=== PATIENT | female | born 1970 | race Caucasian/White ===

== ENCOUNTER 2016-06-22 16:46 | Emergency (ER) | payer OTHER ==
[2016-06-22 17:15] VITALS: BP 137/65
--- NOTE | 2016-06-22 17:26 | UC ---
Eye Complaint HPI - HPI Summary HPI Summary: complaint of eye redness and small bumps on her left eye that started 4 days ago eyes are not painful but are itchy slight crusty drainage on eyes denies eye pain but feels her eyelid scraping it over it hasn't worn contacts for approx 2 days denies vision changes - History of Current Complaint Chief Complaint: UCEye Stated Complaint: EYE COMPLAINT Time Seen by Provider: 06/22/16 17:19 Hx Obtained From: Patient Hx Last Menstrual Period: 06/09/16 - Allergies/Home Medications Allergies/Adverse Reactions: Allergies Allergy/AdvReac Type Severity Reaction Status Date / Time No Known Allergies Allergy Verified 06/22/16 17:15 PMH/Surg Hx/FS Hx/Imm Hx Previously Healthy: Yes Endocrine History Of: Denies: Diabetes, Thyroid Disease Cardiovascular History Of: Denies: Cardiac Disorders, Hypertension, Pacemaker/ICD, Congestive Heart Failure Respiratory History Of: Reports: Asthma Denies: COPD GI/ History Of: Denies: Ulcer, Renal Disease - Surgical History Surgical History: Yes Surgery Procedure, Year, and Place: TUBIAL LIGATION. MASTECTOMY, BREAST IMPLANTS X 2. left eye repair-lazy eye - Family History Known Family History: Negative: Cardiac Disease, Hypertension, Diabetes - Social History Occupation: Employed Full-time Lives: With Family Alcohol Use: Rare Substance Use Type: None Smoking Status (MU): Never Smoked Tobacco - Immunization History Most Recent Tetanus Shot: 2010 Review of Systems Constitutional: Negative Skin: Negative Eyes: Drainage, Eye Redness ENT: Negative Respiratory: Negative Cardiovascular: Negative Gastrointestinal: Negative Genitourinary: Negative Motor: Negative Neurovascular: Negative Musculoskeletal: Negative Neurological: Negative Psychological: Negative All Other Systems Reviewed And Are Negative: Yes Physical Exam Triage Information Reviewed: Yes Appearance: No Pain Distress, Well-Nourished Vital Signs: Initial Vital Signs Temp 98.3 F 06/22/16 17:06 Pulse 90 06/22/16 17:06 Resp 16 06/22/16 17:06 BP 137/65 06/22/16 17:06 Pulse Ox 100 06/22/16 17:06 Vital Signs Reviewed: Yes Eyes: Positive: Conjunctiva Inflamed, Discharge, Other: - OS- observed under fluriescene- small 2mm ulceration lateral side of cornea ENT: Positive: Pharynx normal, TMs normal. Negative: Nasal congestion Neck: Positive: No Lymphadenopathy Respiratory: Positive: Lungs clear, Normal breath sounds Cardiovascular: Positive: RRR, No Murmur, Pulses Normal Musculoskeletal: Positive: No Edema Neurological: Positive: Alert Psychological Exam: Normal Skin Exam: Normal Eye Complaint Course/Dx - Course Course Of Treatment: exam completed will start antibiotics for corneal ulceration and conjunctivitis. followup with Dr Bradley - Differential Dx/Diagnosis Differential Diagnosis/HQI/PQRI: Conjunctivitis, Corneal Abrasion, Other - herpes zoster Provider Diagnoses: left eye-corneal abrasion. both eyes conjunctivitis Discharge - Discharge Plan Condition: Stable Disposition: HOME Prescriptions: Tobramycin (Ophth) [Tobrex] 0.3 % OP Q4HR #1 nataly Patient Education Materials: Corneal Abrasion (ED), Conjunctivitis (ED) Referrals: Conor Vieira MD [Primary Care Provider] - Unruly Bradley MD [Medical Doctor] - Additional Instructions: please contact Dr Bradley on 06/24/16 for further evaluation and treatment of your corneal abrasion and conjunctivitis start eyedrops as directed CONJUNCTIVITIS What is Conjunctivitis? Conjunctivitis is redness and swelling of the conjunctiva, the thin transparent layer that lines the inner eyelid and covers the white part of the eye. The three main types of conjunctivitis are infectious, allergic, and chemical. The infectious type, commonly called "pink eye," is caused by a contagious virus or by bacteria. Your body's allergies to pollen, cosmetics, animals or fabrics often bring on allergic conjunctivitis. Irritants like air pollution, noxious fumes and chlorine in swimming pools may produce the chemical form. Symptoms Might Include: More tearing Eye pain Redness in the eyes Gritty feeling in the eyes Itching of the eye Blurred vision Sensitivity to light Crusts that form on the eyelid overnight Treatment Recommendations: Use eye drops or ointment as directed. Do not rub or touch your eyes. Wash your hands frequently. Use cool compresses to relieve pain and itching. Prevention: Do not share eye make-up. Replace eye make-up frequently. Do not share towels, washcloths, etc. Do not share eye drops. do not wear contact lenses Call Your Doctor or Return Here IF: Your symptoms worsen or do not improve in 3 to 4 days. You have problems with, or loss of, your vision. You have a significant increase in pain. You have any new symptoms that worry you. Your blood pressure is pre-hypertensive reading. Please contact your primary care provider within 1 day -4 weeks for further evaluation
[2016-06-22] MEDS ORDERED: Tetracaine 0.5% OPTH.SOL 4 ML* 1 DROP BTL BOTH EYES ONE (17:27)
[2016-06-22] MEDS ORDERED: Fluorescein Sodium TOPICAL* 1 MG TEST OPHTHALMIC ONE (17:27)
[2016-06-22] MEDS ORDERED: BSS OPTH.SOL* BTL ONE (17:28)
[2016-06-22] MEDS ORDERED: Fluorescein Sodium TOPICAL* 1 MG TEST ONE (17:28)
[2016-06-22] MEDS ORDERED: Tetracaine 0.5% OPTH.SOL 15ML* BTL ONE (17:28)
== END 2016-06-22 17:57 | disposition home or self-care (01) ==
LOC: UCEAST 16:46
DX: S05.02XA Injury of conjunctiva and corneal abrasion without foreign body, left eye, initial encounter (principal); X58.XXXA Exposure to other specified factors, initial encounter; Y93.9 Activity, unspecified; Y92.9 Unspecified place or not applicable; H10.33 Unspecified acute conjunctivitis, bilateral; J45.909 Unspecified asthma, uncomplicated
CPT/HCPCS: 99212; A9270-GY; G0463

== ENCOUNTER 2016-09-10 16:32 | Emergency (ER) | payer OTHER ==
--- NOTE | 2016-09-10 17:44 | UC ---
Back Pain HPI - HPI Summary HPI Summary: no injury no pain,outer aspect of left lower leg in to 3,4,5 toes and toe of foot feels like like it is asleep--no weakness in legs or foot - History of Current Complaint Chief Complaint: UCLowerExtremity Stated Complaint: FOOT AND LEG NUMB Time Seen by Provider: 09/10/16 17:15 Hx Obtained From: Patient Hx Last Menstrual Period: 21 days ago ?: No Onset/Duration: Sudden Onset, Lasting Days - 2, Still Present Timing: Constant Severity Initially: Mild Severity Currently: Mild Pain Intensity: 3 - not real pain just a funny feeling Pain Scale Used: 0-10 Numeric Back Pain: Is Discrete @ - as described Character: Unable to Describe - sleepy feeling Aggravating: Nothing Alleviating: Nothing Associated Signs And Symptoms: Positive: Tingling - Allergies/Home Medications Allergies/Adverse Reactions: Allergies Allergy/AdvReac Type Severity Reaction Status Date / Time No Known Allergies Allergy Verified 06/22/16 17:15 PMH/Surg Hx/FS Hx/Imm Hx Previously Healthy: No GI/ History: Gastroesophageal Reflux Neurological History: Other Other Neurological History: l2-l3 issues in past MRI 2006 - Surgical History Surgical History: Yes Surgery Procedure, Year, and Place: TUBIAL LIGATION. MASTECTOMY, BREAST IMPLANTS X 2. left eye repair-lazy eye - Family History Known Family History: Negative: Cardiac Disease, Hypertension, Diabetes - Social History Occupation: Employed Full-time Lives: With Family Alcohol Use: Weekly Substance Use Type: None Smoking Status (MU): Never Smoked Tobacco - Immunization History Most Recent Tetanus Shot: 2010 Review of Systems Constitutional: Negative Skin: Negative Eyes: Negative ENT: Negative Respiratory: Negative Cardiovascular: Negative Gastrointestinal: Negative Genitourinary: Negative Motor: Negative Neurovascular: Decreased Sensation - sleepy feeling in L5 dermatone Musculoskeletal: Negative Neurological: Negative Psychological: Negative All Other Systems Reviewed And Are Negative: Yes Physical Exam Triage Information Reviewed: Yes Appearance: Well-Appearing, No Pain Distress, Well-Nourished Vital Signs: Initial Vital Signs Temp 99.6 F 09/10/16 16:35 Pulse 76 09/10/16 16:35 Resp 18 09/10/16 16:35 Pulse Ox 100 09/10/16 16:35 Vital Signs Reviewed: Yes Eye Exam: Normal Eyes: Positive: Conjunctiva Clear ENT Exam: Normal ENT: Positive: Normal ENT inspection, Hearing grossly normal, TMs normal. Negative: Nasal congestion, Nasal drainage, Trismus, Muffled/hoarse voice Dental Exam: Normal Neck exam: Normal Neck: Positive: Supple, Nontender, No Lymphadenopathy Respiratory Exam: Normal Respiratory: Positive: Chest non-tender, Lungs clear, Normal breath sounds, No respiratory distress, No accessory muscle use Cardiovascular Exam: Normal Cardiovascular: Positive: RRR, No Murmur, Pulses Normal, Brisk Capillary Refill Musculoskeletal Exam: Normal Musculoskeletal: Positive: Strength Intact, ROM Intact, No Edema, Other: - reflexes equal and intact, streght bilaterally equal Neurological Exam: Normal Neurological: Positive: Alert, Muscle Tone Normal Psychological Exam: Normal Skin Exam: Normal Back Pain Course/Dx - Course Course Of Treatment: medrol dose suresh, refused work note, follow with Dr. Gresham - Differential Dx/Diagnosis Differential Diagnosis/HQI/PQRI: Fracture, Strain, Sprain Provider Diagnoses: lumbar radiculopathy Discharge - Discharge Plan Condition: Stable Disposition: HOME Prescriptions: Methylprednisolone [Medrol Dosepak 4 MG*] 4 mg PO .SEE SURESH INSTRUCTION #1 packet Patient Education Materials: Lumbar Radiculopathy (ED) Referrals: Conor Vieira MD [Primary Care Provider] - 3 Days
== END 2016-09-10 17:51 | disposition home or self-care (01) ==
LOC: UCEAST 16:32
DX: M54.16 Radiculopathy, lumbar region (principal)
CPT/HCPCS: 99212; G0463

== ENCOUNTER 2016-09-25 19:35 | Emergency (ER) | payer OTHER ==
[2016-09-25] MEDS ORDERED: diPHENhydraMINE IV* 50 MG/ML 1 ml VIAL (BENADRYL) IV ONE (20:38)
[2016-09-25] MEDS ORDERED: Famotidine IV* 10 MG/ML 2 ML (20 mg) IV SLOW PU ONE (20:38)
[2016-09-25] MEDS ORDERED: methylPREDNISolone 125 MG* 2 ML VIAL IV ONE (20:38)
--- NOTE | 2016-09-25 21:06 | ED ---
I, Ag,Natividad, scribed for Marty Quinteros MD on 09/25/16 at 2041 . Allergic Reaction/Systemic - HPI Summary HPI Summary: This 46 y/o female presents to ED for rash diffuse over bilat arms and puffy/ itchy eyes since an hour ago. Pt does reports consuming "gourmet bond candy cane" prior to the reaction. She admits to having similar allergic reaction to meds and dairy product before. 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 Plan of care involving asthma and allergy association is discussed, and pt is agreeable. - History of Current Complaint Chief Complaint: EDAllergicReaction Time Seen by Provider: 09/25/16 20:35 Hx Obtained From: Patient, Medical Records Hx Last Menstrual Period: 21 days ago Timing: Constant Pain Intensity: 0 Pain Scale Used: 0-10 Numeric Character: Hives Aggravating Factor(s): Nothing Alleviating Factor(s): Nothing - Allergies/Home Medications Allergies/Adverse Reactions: Allergies Allergy/AdvReac Type Severity Reaction Status Date / Time [place] Allergy GI Upset Verified 09/25/16 19:59 Lactose Allergy GI Upset Verified 09/25/16 19:58 Oxycodone Allergy GI Upset Verified 09/25/16 19:59 Peanut-containing Drug Allergy Hives Verified 09/25/16 19:59 Products PMH/Surg Hx/FS Hx/Imm Hx Endocrine/Hematology History: Denies: Hx Diabetes, Hx Thyroid Disease Cardiovascular History: Denies: Hx Congestive Heart Failure, Hx Hypertension, Hx Pacemaker/ICD Respiratory History: Reports: Hx Asthma Denies: Hx Chronic Obstructive Pulmonary Disease (COPD) GI History: Denies: Hx Ulcer, Other GI Disorders History: Denies: Hx Renal Disease Sensory History: Denies: Hx Hearing Aid Neurological History: Reports: Other Neuro Impairments/Disorders - L2 DISC BULDGING Psychiatric History: Denies: Hx Panic Disorder - Cancer History Cancer Type, Location and Year: BREAST CANCER RIGHT - Surgical History Surgery Procedure, Year, and Place: TUBIAL LIGATION. MASTECTOMY, BREAST IMPLANTS X 2. 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 Denies: Hx Clostridium Difficile, Hx Hepatitis, Hx Human Immunodeficiency Virus (HIV), Hx Shingles, Hx Tuberculosis, Hx Known/Suspected VRE, Hx Known/ Suspected VRSA, History Other Infectious Disease, Traveled Outside the [place] in Last 30 Days - Family History Known Family History: Negative: Cardiac Disease, Hypertension, Diabetes - Social History Alcohol Use: Rare Substance Use Type: Reports: None Smoking Status (MU): Never Smoked Tobacco Review of Systems Negative: Fever Positive: Other - itchy/puffy eyes Positive: Rash - bilat upper extremities All Other Systems Reviewed And Are Negative: Yes Physical Exam Triage Information Reviewed: Yes Vital Signs On Initial Exam: Initial Vitals Temp Pulse Resp BP Pulse Ox 100 F 85 18 151/98 97 09/25/16 19:41 09/25/16 19:41 09/25/16 19:41 09/25/16 19:41 09/25/16 19:41 Vital Signs Reviewed: Yes Appearance: Positive: Well-Appearing, No Pain Distress Skin: Positive: Warm, Other - mild periorbital edema, scattered urticaria Eyes: Positive: JESUS ENT: Positive: Hearing grossly normal, Pharynx normal. Negative: Pharyngeal erythema Neck: Positive: Supple, Nontender Respiratory/Lung Sounds: Positive: Clear to Auscultation, Breath Sounds Present Cardiovascular: Positive: RRR Abdomen Description: Positive: Nontender, Soft Bowel Sounds: Positive: Present Musculoskeletal: Positive: Strength/ROM Intact Neurological: Positive: Alert, Oriented to Person Place, Time, Normal Gait Psychiatric: Positive: Affect/Mood Appropriate - [place] Coma Scale Coma Scale Total: 15 Diagnostics - Vital Signs Vital Signs Temp Pulse Resp BP Pulse Ox 09/25/16 19:41 100 F 85 18 151/98 97 - Laboratory Lab Statement: Any lab studies that have been ordered have been reviewed, and results considered in the medical decision making process. Re-Evaluation - Re-Evaluation First Eval Change: Improved Allergic Reaction Course/Dx - Diagnoses Provider Diagnoses: Allergic reaction Discharge - Discharge Plan Condition: Improved Disposition: HOME Prescriptions: predniSONE TAB* [Deltasone TAB*] 40 mg PO DAILY #8 tab Patient Education Materials: Prednisone (By mouth), General Allergic Reaction ( ED) Referrals: Conor Vieira MD [Primary Care Provider] - Carol López MD [Medical Doctor] - The documentation as recorded by the Ag luis Soohyun accurately reflects the service I personally performed and the decisions made by Neli miller David, MD.
[2016-09-25 22:10] VITALS: BP 139/94
== END 2016-09-25 22:10 | disposition home or self-care (01) ==
LOC: ED 19:35
DX: T78.40XA Allergy, unspecified, initial encounter (principal); X58.XXXA Exposure to other specified factors, initial encounter; J45.909 Unspecified asthma, uncomplicated; Z88.5 Allergy status to narcotic agent
CPT/HCPCS: 96374; 96375; 99282; J1200; J2930

== ENCOUNTER 2016-10-08 17:23 | Emergency (ER) | payer OTHER ==
[2016-10-08 18:15] VITALS: BP 150/100
--- NOTE | 2016-10-08 19:27 | UC ---
Skin Complaint HPI - HPI Summary HPI Summary: TWO DAYS OF PAINFUL RED TENDER AREA ON LEFT BUTTOCKS. NO KNOWN BITE OR TRAUMA. NO DISCHARGE. HISTORY OF MRSA. - History of Current Complaint Chief Complaint: UCSkin Time Seen by Provider: 10/08/16 18:41 Stated Complaint: BUG BITE Hx Obtained From: Patient Hx Last Menstrual Period: 09/24/16 Onset/Duration: Gradual Onset, Lasting Days, Still Present Skin Exposure Onset/Duration: Days Ago Onset Severity: Moderate Current Severity: Moderate Pain Intensity: 8 Pain Scale Used: 0-10 Numeric Location: Discrete - LEFT BUTTOCKS Character: Redness, Raised, Painful Aggravating: Touch Alleviating: Nothing Associated Signs & Symptoms: Positive: Fever, Tenderness, Red Streaks. Negative : Chills, Hoarseness, Throat Tightening, Rash, Drainage, Bruising, Joint Swelling Related History: Possible Reaction to: Insect, Possible Reaction to: Environmental Exposure - Allergy/Home Medications Allergies/Adverse Reactions: Allergies Allergy/AdvReac Type Severity Reaction Status Date / Time [place] Allergy GI Upset Verified 09/25/16 19:59 Lactose Allergy GI Upset Verified 09/25/16 19:58 Oxycodone Allergy GI Upset Verified 09/25/16 19:59 Peanut-containing Drug Allergy Hives Verified 09/25/16 19:59 Products Review of Systems Constitutional: Fever Skin: Other - TENDER AREA LEFT BUTTOCKS Eyes: Negative ENT: Negative Respiratory: Negative Cardiovascular: Negative Gastrointestinal: Negative Genitourinary: Negative Motor: Negative Neurovascular: Negative Musculoskeletal: Negative Neurological: Negative Psychological: Negative All Other Systems Reviewed And Are Negative: Yes PMH/Surg Hx/FS Hx/Imm Hx Previously Healthy: Yes - Surgical History Surgical History: Yes Surgery Procedure, Year, and Place: TUBIAL LIGATION. MASTECTOMY, BREAST IMPLANTS X 2. left eye repair-lazy eye - Family History Known Family History: Negative: Cardiac Disease, Hypertension, Diabetes - Social History Occupation: Employed Full-time Lives: With Family Alcohol Use: Rare Substance Use Type: None Smoking Status (MU): Never Smoked Tobacco - Immunization History Most Recent Tetanus Shot: 2010 Physical Exam Triage Information Reviewed: Yes Appearance: Well-Appearing, Well-Nourished, Pain Distress Vital Signs: Initial Vital Signs Temp 99.5 F 10/08/16 18:11 Pulse 105 10/08/16 18:11 Resp 19 08/15/17 18:11 BP 150/100 10/08/16 18:11 Pulse Ox 100 10/08/16 18:11 Vital Signs Reviewed: Yes Eye Exam: Normal ENT Exam: Normal ENT: Positive: Normal ENT inspection, Hearing grossly normal, TMs normal Dental Exam: Normal Neck exam: Normal Neck: Positive: Supple, Nontender Respiratory Exam: Normal Respiratory: Positive: Chest non-tender, Lungs clear, Normal breath sounds, No respiratory distress Cardiovascular Exam: Normal Cardiovascular: Positive: RRR, No Murmur, Pulses Normal, Brisk Capillary Refill Abdominal Exam: Normal Abdomen Description: Positive: Nontender, No Organomegaly Musculoskeletal Exam: Normal Neurological Exam: Normal Psychological Exam: Normal Skin: Positive: Other - 4CM X 4CM ERRYTHEMATOUS INDURATED AREA LEFT BUTTOCKS Course/Dx - Differential Diagnoses - Skin Complaint Differential Diagnoses: Abscess, Cellulitis, MRSA - Diagnoses Provider Diagnoses: CELLULITIS LEFT BUTTOCKS; HISTORY OF MRSA Discharge - Discharge Plan Condition: Stable Disposition: HOME Prescriptions: DOXYcycline CAP(*) [DOXYcycline 100MG CAP(*)] 100 mg PO BID #20 cap HYDROcodone/ACETAMIN 5-325 MG* [[place] 5-325 TAB*] 1 tab PO Q8H PRN #9 tab MDD THREE TABS PRN Reason: Pain Patient Education Materials: MRSA (Methicillin-Resistant Staphylococcus Aureus ) (ED), Cellulitis (ED) Referrals: Conor Vieira MD [Primary Care Provider] - Images Front/Back of Body, Lg ([place]): 1 - 4CM X 4CM ERRYTHEMATOUS INDURATED AREA LEFT BUTTOCKS
== END 2016-10-08 19:05 | disposition home or self-care (01) ==
LOC: UCEAST 17:23
DX: L03.317 Cellulitis of buttock (principal); Z86.14 Personal history of Methicillin resistant Staphylococcus aureus infection; Z88.5 Allergy status to narcotic agent
CPT/HCPCS: 99212; G0463